=== PATIENT | male | born 1970 | race African-American/Black ===

== ENCOUNTER 2017-06-17 08:10 | Emergency (ER) | payer OTHER ==
[~2017-06-17] VITALS: Ht 177.8 cm; Wt 99.8 kg
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
--- NOTE | ~2017-06-17 | EKG ---
PATIENT: GABBY SANDERS UNIT #: [id number] Ventricular Rate: 95 BPM Atrial Rate: 95 BPM P-R Interval: 144 ms QRS Duration: 92 ms Q-T Interval: 344 ms QTC Calculation(Bezet): 432 ms P [place]: 73 degrees Calculated R [place]: 39 degrees Calculated T [place]: -10 degrees Diagnosis Line: Normal sinus rhythm Diagnosis Line: Normal ECG Diagnosis Line: No previous ECGs available Diagnosis Line: Confirmed by LUCAS KELLY MD ([id number]) on Diagnosis Line: 06/18/2017 4:38:51 PM INTERPRETING MD: ANASTASIIA
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
[2017-06-17 10:26] LABS: POC - CKMB 1.1 ng/mL (0.0-7.9); POC - TROPONIN <0.05 ng/mL (<=0.05)
== END 2017-06-17 14:31 | disposition home or self-care (01) ==
LOC: CED 08:10
PROVIDERS: Emergency Medicine
DX: S09.90XA Unspecified injury of head, initial encounter (principal); S01.312A Laceration without foreign body of left ear, initial encounter; R07.9 Chest pain, unspecified; Z23 Encounter for immunization; F17.200 Nicotine dependence, unspecified, uncomplicated; Z98.52 Vasectomy status; V43.52XA Car driver injured in collision with other type car in traffic accident, initial encounter; Y92.410 Unspecified street and highway as the place of occurrence of the external cause
CPT/HCPCS: 12011; 70450; 71020; 71250; 72125; 82553; 84484; 90471; 90715; 93005; 99284